=== PATIENT | female | born 1950 | race Caucasian/White ===

== ENCOUNTER → 2024-09-22 12:35 | Outpatient (REF) | payer MEDICARE, OTHER, SELFPAY ==
[2024-09-22 13:02] VITALS: BP 145/84; BP_SYST 90
== END ==
LOC: RADI 12:35
PROVIDERS: ATTENDING PHYSICIAN Surgery; FAMILY PHYSICIAN Family Medicine
DX: E04.1 Nontoxic single thyroid nodule (principal)
CPT/HCPCS: 88173; 10005